=== PATIENT | female | born 2000 | race African-American/Black ===

== ENCOUNTER 2018-07-30 19:45 | Emergency (ER) | payer SELFPAY ==
[~2018-07-30] VITALS: Ht 172.7 cm; Wt 67.1 kg
[2018-07-30 19:53] VITALS: Ht 172.7 cm; Wt 67.1 kg
[2018-07-30 20:34] VITALS: BP 112/73
== END 2018-07-30 20:34 | disposition home or self-care (01) ==
LOC: ED 19:45
DX: Z04.1 Encounter for examination and observation following transport accident (principal); V44.5XXA Car driver injured in collision with heavy transport vehicle or bus in traffic accident, initial encounter; Y93.I9 Activity, other involving external motion; Y92.413 State road as the place of occurrence of the external cause; Y99.8 Other external cause status